=== PATIENT | female | born 1995 | race Caucasian/White ===

== ENCOUNTER 2023-01-08 11:40 | Observation (INO) | payer OTHER ==
[2023-01-08 11:57] VITALS: TEMP 97.9
[2023-01-08] MEDS ORDERED: SODIUM CHLORIDE 0.9% 1,000 ML IV STA ×2 (12:07→15:12)
[2023-01-08] MEDS ORDERED: NALOXONE 0.4 MG/ML 1 ML VIAL IV STA (12:07)
--- NOTE | 2023-01-08 12:23 | ED ---
Overdose HPI - General Chief Complaint: Overdose Stated Complaint: OD Time Seen by Provider: 01/08/23 11:50 Source: EMS, RN notes reviewed Mode of arrival: EMS Limitations: altered mental status - History of Present Illness Initial Comments: Patient is a 27-year-old female presenting to the emergency room via EMS for oversedation from [place]. Patient is very lethargic upon arrival with minimal verbal responses but responding to verbal stimuli occasionally. She retorts injecting multiple substances prior to her arrival at [place] where she was checked in for polysubstance abuse. Her substances of choice in the past have been heroin, meth, cocaine, fentanyl and benzodiazepines as stated above is uncertain how much or what she took prior to her arrival. - Related Data Allergies Allergy/AdvReac Type Severity Reaction Status Date / Time amoxicillin Allergy Unknown Verified 01/08/23 11:59 clarithromycin Allergy Unknown Verified 01/08/23 11:59 Penicillins Allergy Unknown Verified 01/08/23 11:59 Review of Systems ROS Statement: Those systems with pertinent positive or pertinent negative responses have been documented in the HPI. ROS Other: All systems not noted in ROS Statement are negative. Past Medical History Past Medical History: No Reported History History of Any Multi-Drug Resistant Organisms: None Reported Past Surgical History: No Surgical Hx Reported Smoking Status: Current every day smoker Past Alcohol Use History: Unable to Obtain Past Drug Use History: Cocaine, Heroin, Marijuana, Methamphetamine, Opiates General Exam Limitations: altered mental status General appearance: lethargic Head exam: Present: atraumatic, normocephalic, normal inspection Eye exam: Present: normal appearance, PERRL. Absent: scleral icterus, conjunctival injection, periorbital swelling ENT exam: Present: normal exam, mucous membranes moist Neck exam: Present: normal inspection Respiratory exam: Present: normal lung sounds bilaterally. Absent: respiratory distress, wheezes, rales, rhonchi, stridor Cardiovascular Exam: Present: regular rate, normal rhythm, normal heart sounds. Absent: systolic murmur, diastolic murmur, rubs, gallop, clicks GI/Abdominal exam: Present: soft, normal bowel sounds. Absent: distended, tenderness, guarding, rebound, rigid Extremities exam: Present: normal inspection. Absent: joint swelling Back exam: Present: normal inspection Expanded Eye Response: (3) open to voice Motor Response: (5) localizes to pain Verbal Response: (4) confused conversation [facility] Total: 12 Psychiatric exam: Present: flat affect Skin exam: Present: warm, dry, intact, normal color. Absent: rash Course Vital Signs 01/08/23 01/08/23 01/08/23 11:43 12:50 13:00 Temperature 97.9 F Pulse Rate 70 73 64 Respiratory 16 14 6 L Rate Blood Pressure 95/59 94/48 O2 Sat by Pulse 97 72 L 97 Oximetry 01/08/23 01/08/23 01/08/23 13:06 13:11 13:15 Temperature Pulse Rate 88 84 Respiratory 10 L 12 10 L Rate Blood Pressure 107/74 107/74 O2 Sat by Pulse 94 L Oximetry 01/08/23 01/08/23 01/08/23 13:30 13:45 14:00 Temperature Pulse Rate 74 75 80 Respiratory 12 8 L 10 L Rate Blood Pressure 101/63 83/46 80/46 O2 Sat by Pulse 96 96 97 Oximetry 01/08/23 01/08/23 01/08/23 14:01 14:15 14:16 Temperature Pulse Rate 99 98 Respiratory 10 L 20 12 Rate Blood Pressure 93/52 93/52 O2 Sat by Pulse 96 94 L Oximetry 01/08/23 01/08/23 01/08/23 14:25 14:30 14:31 Temperature Pulse Rate 80 93 79 Respiratory 10 L 10 L 10 L Rate Blood Pressure 98/69 98/69 89/67 O2 Sat by Pulse 98 98 99 Oximetry Medical Decision Making - Medical Decision Making Was pt. sent in by a medical professional or institution (, PA, RECEIVER/LABORER, urgent care, hospital, or prison...) When possible be specific @ -No Did you speak to anyone other than the patient for history (EMS, parent, family, police, friend...)? What history was obtained from this source @ -Yes received report regarding presenting illness from EMS Did you review nursing and triage notes (agree or disagree)? Why? @ -I reviewed and agree with nursing and triage notes Were old charts reviewed (outside hosp., previous admission, EMS record, old EKG, old radiological studies, urgent care reports/EKG's, prison records)? Report findings @ -No old charts were reviewed Differential Diagnosis (chest pain, altered mental status, abdominal pain women, abdominal pain men, vaginal bleeding, weakness, fever, dyspnea, syncope, headache, dizziness, GI bleed, back pain, seizure, CVA, palpatations, mental health, musculoskeletal)? @ -Differential Mental Health Depression, anxiety, bipolar, psychosis, schizophrenia, borderline personality, situational depression, adjustment disorder, behavioral disorder, brain tumor, malingering, substance abuse, encephalopathy, medication reaction, dementia, hypothyroidism, degenerative neurologic disorder, lupus.... This is not meant to be all-inclusive list EKG interpreted by me (3pts min.). @ -Sinus rhythm, ventricular rate 71 bpm, UT interval 198 ms, QRS duration 94 ms, QT/QTC 426/449 ms, PRT axes 70, 92, 72 X-rays interpreted by me (1pt min.). @ -None done CT interpreted by me (1pt min.). @ -None done U/S interpreted by me (1pt. min.). @ -None done What testing was considered but not performed or refused? (CT, X-rays, U/S, labs)? Why? @ -None What meds were considered but not given or refused? Why? @ -None Did you discuss the management of the patient with other professionals (professionals i.e. , PA, RECEIVER/LABORER, lab, RT, psych nurse, social security benefits interviewer, pay clerk, teacher, air intelligence officer, case assembler)? Give summary @ -yes, spoke with Dr. Cifuentes was sound physicians regarding patient's presentation, workup, treatment and recommendation for observation to monitor sedation levels and continue to hydrate. He is accepting of admission and denies any further orders at this time. Was smoking cessation discussed for >3mins.? @ -No Was critical care preformed (if so, how long)? @ -No Were there social determinants of health that impacted care today? How? (Homelessness, low income, unemployed, alcoholism, drug addiction, transportation, low edu. Level, literacy, decrease access to med. care, group home, rehab)? @ -Polysubstance abuse Was there de-escalation of care discussed even if they declined (Discuss DNR or withdrawal of care, Hospice)? DNR status @ -No What co-morbidities impacted this encounter? (DM, HTN, Smoking, COPD, CAD, Ca ncer, CVA, ARF, Chemo, Hep., AIDS, mental health diagnosis, sleep apnea, morbid obesity)? @ -None Was patient admitted / discharged? Hospital course, mention meds given and route, prescriptions, significant lab abnormalities, going to OR and other pertinent info. @ -27-year-old female presenting to the emergency room via EMS for over sedati on from [place]. Patient is very lethargic upon arrival with minimal verbal responses but responding to verbal stimuli occasionally. She retorts injecting multiple substances prior to her arrival at [place] where she was checked in for polysubstance abuse. Her substances of choice in the past have been heroin, meth, cocaine, fentanyl and benzodiazepines as stated above is uncertain how much or what she took prior to her arrival. Will give Narcan, 1 L bolus and obtain laboratory studies of CBC, CMP, serum alcohol, serum acetaminophen, salicylate, lactic acid, urine drug screen, urine test. Will monitor patient closely. improvement and lethargy after first dose of Narcan but then quickly lethargic again. Second dose of Narcan given without any significant improvement of 2 mg. Blood pressure low with stable heart rate second liter fluid bolus and then maintenance fluids started. respiratory rate low however maintaining oxygenation levels of 100% to 98% on room air. urine drug screen pending. CBC unremarkable. CMP demonstrates slightly elevated AST and ALTs with normal bilirubin and normal alkaline phosphatase. Lactic acid normal. Serum alcohol, aspirin and Tylenol levels all undetectable. Patient responds to verbal commands and was advised it is recommended that she be admitted overnight for observation stay to monitor her sedation levels and hydrate her; she is agreeable to this plan. Spoke with Dr. Esau hardin physicians regarding recommendation for observation stay; he is accepting of admission. Will admit patient in stable condition to observation under [facility] physicians to monitor sedation levels and hydration after accidental overdose related to her substance abuse disorder. Undiagnosed new problem with uncertain prognosis? @ -No Drug Therapy requiring intensive monitoring for toxicity (Heparin, Nitro, Insulin, Cardizem)? @ -No Were any procedures done? @ -No Diagnosis/symptom? @ -Substance abuse disorder Acute, or Chronic, or Acute on Chronic? @ -Acute on chronic Uncomplicated (without systemic symptoms) or Complicated (systemic symptoms)? @ -Complicated Side effects of treatment? @ -No Exacerbation, Progression, or Severe Exacerbation? @ -No Poses a threat to life or bodily function? How? (Chest pain, USA, AR, pneumonia, PE, COPD, DKA, ARF, appy, cholecystitis, CVA, Diverticulitis, Homicidal, Suicidal, threat to staff... and all critical care pts) @ -Yes, overdose on polysubstance at risk for respiratory depression, respiratory arrest and . Diagnosis/symptom? @ -Accidental overdose Acute, or Chronic, or Acute on Chronic? @ -Acute Uncomplicated (without systemic symptoms) or Complicated (systemic symptoms)? @ -Uncomplicated Side effects of treatment? @ -none Exacerbation, Progression, or Severe Exacerbation] @ -no Poses a threat to life or bodily function? @ -Yes, overdose on polysubstance at risk for respiratory depression, respiratory arrest and . Case discussed with Dr. Holliday - Lab Data Result diagrams: 01/08/23 13:09 01/08/23 13:09 Lab Results 01/08/23 01/08/23 01/08/23 Range/Units 13:09 13:09 13:09 WBC 4.9 (3.8-10.6) k/uL RBC 3.93 (3.80-5.40) m/uL Hgb 12.3 (11.4-16.0) gm/dL Hct 37.7 (34.0-46.0) % MCV 95.7 (80.0-100.0) fL MCH 31.3 (25.0-35.0) pg MCHC 32.6 (31.0-37.0) g/dL RDW 13.0 (11.5-15.5) % Plt Count 166 (150-450) k/uL MPV 8.5 Neutrophils % 35 % Lymphocytes % 52 % Monocytes % 6 % Eosinophils % 4 % Basophils % 0 % Neutrophils # 1.7 (1.3-7.7) k/uL Lymphocytes # 2.5 (1.0-4.8) k/uL Monocytes # 0.3 (0-1.0) k/uL Eosinophils # 0.2 (0-0.7) k/uL Basophils # 0.0 (0-0.2) k/uL Sodium 137 (137-145) mmol/L Potassium 4.5 (3.5-5.1) mmol/L Chloride 103 (98-107) mmol/L Carbon Dioxide 29 (22-30) mmol/L Anion Gap 5 mmol/L BUN 8 (7-17) mg/dL Creatinine 0.52 (0.52-1.04) mg/dL Est GFR (CKD-EPI)AfAm >90 (>60 ml/min/1.73 sqM) Est GFR (CKD-EPI)NonAf >90 (>60 ml/min/1.73 sqM) Glucose 80 (74-99) mg/dL Plasma Lactic Acid Venancio (0.7-2.0) mmol/L Calcium 9.2 (8.4-10.2) mg/dL Total Bilirubin 0.3 (0.2-1.3) mg/dL AST 37 H (14-36) U/L ALT 39 H (4-34) U/L Alkaline Phosphatase 94 (38-126) U/L Total Protein 6.6 (6.3-8.2) g/dL Albumin 3.7 (3.5-5.0) g/dL Urine HCG, Qual Not Detected (Not Detectd) Salicylates <1.0 mg/dL Acetaminophen <10.0 ug/mL Serum Alcohol <10 mg/dL 01/08/23 Range/Units 13:09 WBC (3.8-10.6) k/uL RBC (3.80-5.40) m/uL Hgb (11.4-16.0) gm/dL Hct (34.0-46.0) % MCV (80.0-100.0) fL MCH (25.0-35.0) pg MCHC (31.0-37.0) g/dL RDW (11.5-15.5) % Plt Count (150-450) k/uL MPV Neutrophils % % Lymphocytes % % Monocytes % % Eosinophils % % Basophils % % Neutrophils # (1.3-7.7) k/uL Lymphocytes # (1.0-4.8) k/uL Monocytes # (0-1.0) k/uL Eosinophils # (0-0.7) k/uL Basophils # (0-0.2) k/uL Sodium (137-145) mmol/L Potassium (3.5-5.1) mmol/L Chloride (98-107) mmol/L Carbon Dioxide (22-30) mmol/L Anion Gap mmol/L BUN (7-17) mg/dL Creatinine (0.52-1.04) mg/dL Est GFR (CKD-EPI)AfAm (>60 ml/min/1.73 sqM) Est GFR (CKD-EPI)NonAf (>60 ml/min/1.73 sqM) Glucose (74-99) mg/dL Plasma Lactic Acid Venancio 1.2 (0.7-2.0) mmol/L Calcium (8.4-10.2) mg/dL Total Bilirubin (0.2-1.3) mg/dL AST (14-36) U/L ALT (4-34) U/L Alkaline Phosphatase (38-126) U/L Total Protein (6.3-8.2) g/dL Albumin (3.5-5.0) g/dL Urine HCG, Qual (Not Detectd) Salicylates mg/dL Acetaminophen ug/mL Serum Alcohol mg/dL Disposition Clinical Impression: Accidental drug overdose, Other psychoactive substance abuse with other psychoactive substance-induced disorder Disposition: ADMITTED IP TO THIS [facility] Condition: Stable Is patient prescribed a controlled substance at d/c from ED?: No Referrals: None,Stated [Primary Care Provider] - 1-2 days Time of Disposition: 15:14
[2023-01-08] MEDS ORDERED: ONDANSETRON 4 MG/2 ML VIAL IVP STA (13:53)
[2023-01-08] MEDS ORDERED: NALOXONE 0.4 MG/ML 1 ML VIAL IVP STA (13:53)
[2023-01-08 14:23] LABS: Basophils % (A) 0 %; Eosinophils # (A) 0.2 k/uL (0-0.7); Eosinophils % (A) 4 %; HCT 37.7 % (34.0-46.0); HGB 12.3 gm/dL (11.4-16.0); Lymphocytes # (A) 2.5 k/uL (1.0-4.8); Lymphocytes % (A) 52 %; MCH 31.3 pg (25.0-35.0); MCHC 32.6 g/dL (31.0-37.0); MCV 95.7 fL (80.0-100.0); Mean Platelet Volume 8.5; Monocytes # (A) 0.3 k/uL (0-1.0); Monocytes % (A) 6 %; Neutrophils # (A) 1.7 k/uL (1.3-7.7); Neutrophils % (A) 35 %; Platelet Count 166 k/uL (150-450); RBC 3.93 m/uL (3.80-5.40); WBC 4.9 k/uL (3.8-10.6)
[2023-01-08 14:33] LABS: ALT 39 U/L (4-34); AST 37 U/L (14-36); Acetaminophen <10.0 ug/mL; African American GFR (CKD) >90 (>60 ml/min/1.73 sqM); Albumin 3.7 g/dL (3.5-5.0); Alcohol <10 mg/dL; Alkaline Phosphatase 94 U/L (38-126); Anion Gap 5 mmol/L; Blood Urea Nitrogen 8 mg/dL (7-17); Calcium 9.2 mg/dL (8.4-10.2); Carbon Dioxide 29 mmol/L (22-30); Chloride 103 mmol/L (98-107); Glucose 80 mg/dL (74-99); Non-African American GFR(CKD) >90 (>60 ml/min/1.73 sqM); Potassium 4.5 mmol/L (3.5-5.1); Salicylate <1.0 mg/dL; Sodium 137 mmol/L (137-145); Total Bilirubin 0.3 mg/dL (0.2-1.3); Total Protein 6.6 g/dL (6.3-8.2)
[2023-01-08] MEDS ORDERED: NALOXONE 0.4 MG/ML 1 ML VIAL IV PRN (15:12)
[2023-01-08 15:16] LABS: Amphetamine Screen,Urine Detected (NotDetected); Barbiturate Screen,Urine Not Detected (NotDetected); Benzodiazepines Screen,Urine Detected (NotDetected); Cocaine Screen,Urine Detected (NotDetected); Methadone Screen, Urine Not Detected (NotDetected); Opiate Screen,Urine Not Detected (NotDetected); Oxycodone Screen, Urine Not Detected (NotDetected); Phencyclidine Screen,Urine Not Detected (NotDetected); Tricyclic Antidepressant,Urine Not Detected (NotDetected); Urn Cannabinoid Scrn Detected (NotDetected)
[2023-01-08] MEDS: SODIUM CHLORIDE 0.9% 1,000 ML IV SCH (15:32)
[2023-01-08] MEDS ORDERED: NALOXONE (MDV) 2 MG in SODIUM CHLORIDE 0.9% 250 ML IV SCH (15:45)
--- NOTE | 2023-01-08 16:58 | CT ---
EXAMINATION TYPE: CT brain wo con DATE OF EXAM: 01/08/2023 COMPARISON: None INDICATION: overdose DLP: 1144.4 mGycm, Automated exposure control for dose reduction was used. CONTRAST: None CT of the brain is performed utilizing 3 mm thick sections through the posterior fossa and 3 mm thick sections through the remaining calvarium. Study is performed within 24 hours of arrival to the hosp ital. No abnormal hyperdensity is present to suggest an acute intracranial hemorrhage. No mass lesion is evident. No acute infarcts are evident. Ventricles and sulci are appropriate for the patient age. Paranasal sinuses and mastoid air cells within the [id number]-sd-haem are clear. IMPRESSIONS: 1. No acute intracranial process. Follow-up MRI can be performed as clinically indicated.
--- NOTE | 2023-01-08 17:28 | P.HPIM ---
History of Present Illness H&P Date: 01/08/23 Chief Complaint: Suspected overdose 27-year-old woman with medical history of polysubstance abuse presented from [place] as a transferred due to suspected overdose. Patient was quite difficult to arouse at [place], and again on my interview. She was not able to participate in interview and history is taken from ER provider signout, chart review. From my understanding, patient has been taking multiple substances and presented to [place] for rehab, however, was very difficult to arouse at their facility and therefore was transferred for evaluation to the emergency room. She could not produce pain in review of systems due to mental status. In the emergency room, patient was afebrile, 93/54, heart rate 70, 96% on room air. CBC is unremarkable. Basic metabolic panel is unremarkable. Liver function tests showed mild elevation of AST to 37, mild elevation of ALT 39. Beta hCG was negative. Urine tox screen was positive for amphetamines, methamp hetamines, benzodiazepines, cocaine, marijuana. Alcohol level was less than 10. Tylenol level is less than 10. Salicylate level was less than 1. Brain CT was negative for acute intracranial process. EKG showed normal sinus rhythm with right axis deviation. Case was discussed with emergency room provider and decision was made to with the patient hospital for further evaluation. Review of systems cannot be completed due to patient's mental status Gen: in no apparent distress, resting comfortably in bed Eyes: PERRL, no scleral injection or icterus HENT: normocephalic, atraumatic, good hearing acuity, moist mucous membranes Neck: no tracheal deviation, full range of motion Resp: good air exchange, breathing comfortably with no accessory muscle use, no tactile fremitus CVS: good distal perfusion x 4, no pitting edema GI: soft, NTTP, ND, no hepatosplenomegaly : no suprapubic tenderness, no CVAT, macedo catheter not present MSK: no clubbing, no cyanosis, no noted contractures of extremities Skin: no noted rashes, petechiae; temperature of skin is appropriate Neuro: moving all extremities without signs of weakness, CN II-XII intact Labs and images as above Assessment: Altered mental status Polysubstance abuse Borderline hypotension Plan: Vital signs reviewed and noted in the HPI Lab work reviewed and noted in the HPI EKG is personally interpreted and noted in the HPI CT of the head is reviewed and noted in HPI Case was discussed with the Emergency Room provider and decision was made to admit the patient for lethargy, altered mental status Continue IV fluids: Normal saline 130 mL per hour Monitor the patient on telemetry Narcan when necessary, however, no opiates were noted on urine tox screen Obtain CBC, basic metabolic panel, magnesium tomorrow Maintain one-to-one sitter Patient is full code Past Medical History Past Medical History: No Reported History History of Any Multi-Drug Resistant Organisms: None Reported Past Surgical History: No Surgical Hx Reported Smoking Status: Current every day smoker Past Alcohol Use History: Unable to Obtain Past Drug Use History: Cocaine, Heroin, Marijuana, Methamphetamine, Opiates Medications and Allergies Home Medications Medication Instructions Recorded Confirmed Type QUEtiapine [SEROquel] 100 mg PO HS 01/08/23 01/08/23 History buPROPion XL [Wellbutrin XL] 150 mg PO DAILY 01/08/23 01/08/23 History Allergies Allergy/AdvReac Type Severity Reaction Status Date / Time amoxicillin Allergy Unknown Verified 01/08/23 16:10 clarithromycin Allergy Unknown Verified 01/08/23 16:10 Penicillins Allergy Unknown Verified 01/08/23 16:10 Physical Exam Osteopathic Statement: *. No significant issues noted on an osteopathic structural exam other than those noted in the History and Physical/Consult. Vitals: Vital Signs Temp Pulse Resp BP Pulse Ox 01/08/23 16:45 93/54 01/08/23 16:30 70 11 L 95/56 96 01/08/23 16:15 70 14 92/58 97 01/08/23 16:00 73 13 83/46 97 01/08/23 15:47 72 18 83/46 97 01/08/23 15:45 75 21 80/44 96 01/08/23 15:30 72 19 81/46 97 01/08/23 15:15 68 16 91/55 98 01/08/23 15:00 65 18 99/64 99 01/08/23 14:45 66 15 89/67 100 01/08/23 14:31 79 10 L 89/67 99 01/08/23 14:30 93 10 L 98/69 98 01/08/23 14:25 80 10 L 98/69 98 01/08/23 14:16 98 12 93/52 94 L 01/08/23 14:15 99 20 93/52 96 01/08/23 14:01 10 L 01/08/23 14:00 80 10 L 80/46 97 01/08/23 13:45 75 8 L 83/46 96 01/08/23 13:30 74 12 101/63 96 01/08/23 13:15 84 10 L 107/74 01/08/23 13:11 88 12 107/74 94 L 01/08/23 13:06 10 L 01/08/23 13:00 64 6 L 94/48 97 01/08/23 12:50 73 14 72 L 01/08/23 11:43 97.9 F 70 16 95/59 97 Intake and Output 01/08/23 01/08/23 01/08/23 06:59 14:59 22:59 Other: Weight 72.575 kg Results CBC & Chem 7: 01/08/23 13:09 01/08/23 13:09 Labs: Abnormal Lab Results - Last 24 Hours (Table) 01/08/23 01/08/23 Range/Units 13:09 13:09 AST 37 H (14-36) U/L ALT 39 H (4-34) U/L Ur Amphetamines Screen Detected H (NotDetected) U Methamphetamines Scrn Detected H (NotDetected) U Benzodiazepines Scrn Detected H (NotDetected) Urine Cocaine Screen Detected H (NotDetected) U Marijuana (THC) Screen Detected H (NotDetected)
[2023-01-09] MEDS: SODIUM CHLORIDE 0.9% 1,000 ML IV SCH (05:49)
[2023-01-09 06:02] LABS: Basophils % (A) 0 %; Eosinophils # (A) 0.2 k/uL (0-0.7); Eosinophils % (A) 4 %; HCT 36.9 % (34.0-46.0); HGB 12.9 gm/dL (11.4-16.0); Lymphocytes # (A) 2.3 k/uL (1.0-4.8); Lymphocytes % (A) 44 %; MCV 94.4 fL (80.0-100.0); Mean Platelet Volume 9.4; Monocytes # (A) 0.4 k/uL (0-1.0); Monocytes % (A) 7 %; Neutrophils # (A) 2.3 k/uL (1.3-7.7); Neutrophils % (A) 43 %; Platelet Count 146 k/uL (150-450); RBC 3.91 m/uL (3.80-5.40); RDW 12.7 % (11.5-15.5); WBC 5.3 k/uL (3.8-10.6)
[2023-01-09 06:17] LABS: African American GFR (CKD) >90 (>60 ml/min/1.73 sqM); Anion Gap 7 mmol/L; Blood Urea Nitrogen 7 mg/dL (7-17); Calcium 9.1 mg/dL (8.4-10.2); Carbon Dioxide 24 mmol/L (22-30); Chloride 106 mmol/L (98-107); Glucose 78 mg/dL (74-99); Magnesium 1.8 mg/dL (1.6-2.3); Non-African American GFR(CKD) >90 (>60 ml/min/1.73 sqM); Potassium 4.5 mmol/L (3.5-5.1); Sodium 137 mmol/L (137-145)
[2023-01-09 06:45] VITALS: BP 104/65; PULSE 71; RESP 18
--- NOTE | 2023-01-09 11:43 | P.DS ---
Providers Date of admission: 01/08/23 15:11 Expected date of discharge: 01/09/23 Attending physician: Malcolm Cifuentes MD Primary care physician: Stated None Hospital Course: Assessment: Altered mental status Polysubstance abuse Borderline hypotension Hospital Course: 27-year-old woman with medical history of polysubstance abuse presented from [place] as a transferred due to suspected overdose. In the emergency room, patient was afebrile, 93/54, heart rate 70, 96% on room air. CBC is unremarkable. Basic metabolic panel is unremarkable. Liver function tests showed mild elevation of AST to 37, mild elevation of ALT 39. Beta hCG was negative. Urine tox screen was positive for amphetamines, methamphetamines, benzodiazepines, cocaine, marijuana. Alcohol level was less than 10. Tylenol level is less than 10. Salicylate level was less than 1. Brain CT was negative for acute intracranial process. EKG showed normal sinus rhythm with right axis deviation. Case was discussed with emergency room provider and decision was made to with the patient hospital for further evaluation. Pt was monitored overnight and treated with IVF for borderline hypotension. By the following day she had recovered back to her baseline. She was discharged with plans to return to [place] for rehab, however, may have had some "conflicts of interest" preventing her from returning there for rehab according to her understanding of her discussion with [place] branch sales and service representative. I spent 32 minutes coordinating this discharge on 01/09. Gen: in no apparent distress, resting comfortably in bed Eyes: PERRL, no scleral injection or icterus HENT: normocephalic, atraumatic, good hearing acuity, moist mucous membranes Neck: no tracheal deviation, full range of motion Resp: good air exchange, breathing comfortably with no accessory muscle use, no tactile fremitus CVS: good distal perfusion x 4, no pitting edema GI: soft, NTTP, ND, no hepatosplenomegaly : no suprapubic tenderness, no CVAT, macedo catheter not present MSK: no clubbing, no cyanosis, no noted contractures of extremities Skin: no noted rashes, petechiae; temperature of skin is appropriate Neuro: moving all extremities without signs of weakness, CN II-XII intact Patient Condition at Discharge: Good Plan - Discharge Summary New Discharge Prescriptions: Continue buPROPion XL [Wellbutrin XL] 150 mg PO DAILY QUEtiapine [SEROquel] 100 mg PO HS Discharge Medication List QUEtiapine [SEROquel] 100 mg PO HS 01/08/23 [History] buPROPion XL [Wellbutrin XL] 150 mg PO DAILY 01/08/23 [History] Follow up Appointment(s)/Referral(s): None,Stated [Primary Care Provider] - 1-2 days Patient Instructions/Handouts: Polysubstance Abuse (ED) Discharge Disposition: HOME SELF-CARE
== END 2023-01-09 11:41 | disposition home or self-care (01) ==
LOC: EC 11:40 → 3SCARD 15:11
PROVIDERS: ADMIT Internal Medicine; ATTEND Internal Medicine
DX: R41.82 Altered mental status, unspecified (principal); F19.10 Other psychoactive substance abuse, uncomplicated; I95.9 Hypotension, unspecified; F17.200 Nicotine dependence, unspecified, uncomplicated; Z79.899 Other long term (current) drug therapy; Z88.0 Allergy status to penicillin; Z88.1 Allergy status to other antibiotic agents
CPT/HCPCS: 96376; 96361; 96374; 96375; 99285; 36415; 93005; 80053; 80048; 83605; 83735; 85025 ×2; 81025; 80306; 80143; 80179; 70450; G0378 ×3; G0480; J2310; J2405; 80320